=== PATIENT | male | born 1995 | race African-American/Black ===

== ENCOUNTER 2019-06-17 10:49 | Observation (INO) ==
[2019-06-17] MEDS ORDERED: LEVAQUIN 500 MG/D5W 500 MG/100 ML IVPB IV SCH (12:45)
[2019-06-17] MEDS: TYLENOL PO ONE ×2 (13:59→14:27)
[2019-06-17] MEDS: NS 1,000 ML IV SCH ×3 (13:59→19:09)
[2019-06-17] MEDS ORDERED: OFIRMEV 1000 MG/ISOTONIC SOLN 1,000 MG/100 ML BOTTLE IV ONE (14:30)
[2019-06-17] MEDS: ROCEPHIN 2 GM in NS 50 ML IV SCH (17:22)
[2019-06-17] MEDS: ZITHROMAX 500 MG/NS 500 MG/250 ML IVPB IV SCH (18:47)
--- NOTE | 2019-06-17 21:27 | CONSULTATION ---
DATE OF CONSULTATION: 06/17/2019 CONCLUSION: Patient has a febrile illness. He passed out yesterday and had a seizure. He has upper respiratory congestion and he is coughing a lot. He also complains of a sore throat. Of the tests we have gotten so far, the chest x-ray shows no pneumonia. CT scan of the head shows no sinusitis. I think he still could have an infection in one of those parts of his body that just yet has not shown up. RECOMMENDATIONS: I have started the patient on Rocephin. I have discontinued Levaquin because the patient is said to have had a seizure yesterday and Levaquin can cause seizures. Instead, I have started the patient on azithromycin. The azithromycin will be given IV as is the Rocephin. The patient's studies thus far show a CBC with a white count of 4230, hemoglobin 16, and platelet count 199,000. Creatinine is 1. GFR is greater than 60. Liver function studies are normal. Urinalysis was negative for white cells or bacteria. Swab for influenza was negative. Blood cultures are pending. CT scan of the head and sinuses showed no abnormalities. The chest x-ray was clear. PAST MEDICAL HISTORY/REVIEW OF SYSTEMS: Eyes and ears: He hears and sees well. Neck: He does not have any stiffness. Respiratory: See present illness. Cardiac: No palpitations. He does have chest pain, but it is pleuritic in nature. Neurologic: The patient is said to have had a seizure yesterday. Genitourinary: No dysuria or flank pain. PREVIOUS HOSPITALIZATIONS AND OPERATIONS: He has had a cholecystectomy. MEDICAL DISEASES: Negative for sickle cell disease. Negative for diabetes. Negative for seizures, except since yesterday when he was said to have had a seizure. INFECTIOUS DISEASE HISTORY: Negative for pneumonia and UTI. FAMILY HISTORY: Positive for diabetes mellitus, hypertension, myocardial infarction, stroke, and cancer. SOCIAL HISTORY: [place] the city with his parents. He has a girlfriend. He does not have any pets. He drinks alcoholic beverages, but he does not smoke cigarettes or abuse drugs. He is going to school at [employer]. He also works at [employer]. ALLERGIES: He is allergic to Zofran. PHYSICAL EXAMINATION: Vital Signs: Temperature is 98.6 degrees, pulse 88, respirations 16, blood pressure 127/72. There is not a weight in the chart. General: This is a somewhat ill-appearing, young male. He is in no acute distress. Head/eyes/ears/nose/throat: He can hear my spoken words and see near objects. His sinuses are not tender. I did not see any erythema in his throat or white patches on his tongue. Neck: No meningismus. Lungs: I heard a few crackles in the right base. The left lung was clear. Abdomen: Soft and nontender. Neurologic: Patient is alert. He can move his extremities. There is no tremor. His sensation is intact to touch. His memory as regarding his medical history is intact. Integument: No rash noted. Thank you for the consult. cc: MD Talon Millard MD
[2019-06-17] MEDS ORDERED: ATIVAN PO ONE (21:49)
[2019-06-17] MEDS: TYLENOL LIQUID PO PRN (23:54)
--- NOTE | 2019-06-17 23:55 | HISTORY AND PHYSICAL ---
CHIEF COMPLAINT: Fever 103 degrees, difficulty in swallowing. HISTORY OF PRESENT ILLNESS: He is a 23-year-old male who was brought to my office as a followup from the [facility]. The patient was seen yesterday with near- syncope. While he was pulled over, almost passed out. Complains of body pains and ache, coughing. The patient had extensive workup done in [place] [facility]. He had a CT head that is negative. Chest x-ray is negative. Influenza was negative. CBC: Leukopenia. CMP was normal. Sent home on amoxicillin. In my office the patient had fever, chills, not able to talk, and while I am examining he had a left tympanic membrane that is red. Wax was noted on the right eardrum. Oropharynx diffusely red. No exudates noted. While I am putting the tongue blade he had a vasovagal attack, slightly dizzy and near-syncope. There was no seizure activity. No loss of consciousness. He was admitted to the hospital, and the family was really concerned about this high fever. He denies any neck pain. No meningeal signs noted. After triaging in the ER, he had a fever of 103 degrees. IV Tylenol was given. Blood cultures were obtained. ID consult was obtained. As a result, a hospital admission was warranted. PAST MEDICAL HISTORY: Allergic rhinitis, asthmatic bronchitis, IBS with constipation. PAST SURGICAL HISTORY: None. MEDICATIONS: Amoxicillin. ALLERGIES: Zofran. SOCIAL HISTORY: Single. Working for [employer]. Lives in [place]. No smoking, no drugs, no alcohol abuse. FAMILY HISTORY: Father is in good health. Mother is in good health. REVIEW OF SYSTEMS: HEENT: He has a headache, sore throat, fever, body pains and confusion. No neck pain, no rigidity. Cardiopulmonary: No chest pain, shortness of breath, PND or orthopnea. GI: No nausea, vomiting or abdominal pain. No skin rashes. No joint pain. No tick bites. Neurologic: No focal symptoms or weakness. PHYSICAL EXAMINATION: VITAL SIGNS: He has a temperature in my office, 103 degrees, and tachycardic. GENERAL: Slightly confused. HEENT: Left tympanic membrane is inflamed, right not able to see with basically wax noted. Diffuse oropharynx redness. No cyst. Slightly congested. No exudate. NECK: Supple. No lymphadenopathy. CHEST: Bilateral air entry. No rales, no wheezing. HEART: Sounds are regular. No murmur. ABDOMEN: Belly is soft, obese, nontender. Good bowel sounds. No peripheral edema or cyanosis. NEUROLOGIC: No obvious neurological deficits. INVESTIGATIONS: Yesterday, as attached. ASSESSMENT: 1. A 23-year-old male came in with a fever, suspicious viral fever. 2. Left ear otitis media. PLAN: 1. Follow up on blood cultures, sputum cultures. Repeat CBC, CMP in the morning. We will start IV fluids. 2. IV ceftriaxone, Zithromax. Repeat the labs in the morning. Continue symptomatic treatment. I appreciate Dr. Hackett' consult. We will follow up. cc: Talon Mejia MD
[2019-06-18] MEDS: NS 1,000 ML IV SCH ×2 (03:36→18:03)
[2019-06-18 05:50] LABS: BASO# 0.02 X1000 (0.0-0.2); BASO% 0.6 % (0.0-0.8); EOS# 0.04 X1000 (0.0-0.7); EOS% 1.3 % (0.0-10.0); HEMATOCRIT 48.6 % (42.0-52.0); IMM GRAN# 0.02 X1000 (0.0-0.04); IMM GRAN% 0.6 % (0.0-0.5); LYMPH# 0.86 X1000 (1.2-3.4); LYMPH% 27.9 % (20.5-51.1); MCH 26.3 PG (27-31); MCHC 32.9 g/dL (33-37); MCV 79.8 FL (81-99); MONO# 0.72 X1000 (0.11-0.59); MONO% 23.4 % (1.7-9.3); MPV 10.2 FL (7.4-10.4); NEUT# 1.42 X1000 (1.4-6.5); NEUT% 46.2 % (42.2-75.2); PLT 168 X1000 (130-400); RBC 6.09 XMIL (4.7-6.1); RDW 12.3 % (11.5-14.5); WBC 3.08 X1000 (4.8-10.8)
[2019-06-18 06:20] LABS: AGAP 10; ALB/GLOB RATIO 1.2; ALBUMIN 3.7 g/dL (3.5-5.0); ALKALINE PHOSPHATASE 52 U/L (32-122); BUN 9 mg/dL (8-22); CALCIUM 9.3 mg/dL (8.8-10.2); CHLORIDE 101 mmol/L (98-107); COSMO 273; CREATININE 1.3 mg/dL (0.7-1.2); ESTIMATED GFR > 60; GLUCOSE 103 mg/dL (70-104); GOT 22 U/L (10-34); GPT 39 U/L (10-44); SODIUM 137 mmol/L (136-145); TCO2 26 mmol/L (25-35); TOTAL BILIRUBIN 0.65 mg/dL (0.20-1.00); TOTAL PROTEIN 6.7 g/dL (6.3-8.3)
[2019-06-18] MEDS: TESSALON PO PRN ×3 (06:47→21:52)
[2019-06-18] MEDS: TYLENOL LIQUID PO PRN ×3 (06:47→21:57)
[2019-06-18 06:53] LABS: LYMPHS 20 % (21-51); MONO 30 % (1-9); SEGS 48 % (42-75)
--- NOTE | 2019-06-18 07:44 | Diag Imaging Result Doc PS360 ---
CHEST-2 VIEWS - 06/18/2019 INDICATION: hypoxia COMPARISON: 06/16/2019 FINDINGS: The lungs are normally expanded and clear. Heart size and mediastinal contours are normal. No pneumothorax or pleural effusion. IMPRESSION: Negative exam. Electronically signed by Rajeev Solano 06/18/2019 7:42 AM
--- NOTE | 2019-06-18 09:58 | PROGRESS NOTE ---
DATE: 06/18/2019 SUBJECTIVE: The patient is still running a 102 fever, tachycardic, and coryza, URI symptoms. Ears are hurting. Denies of neck pain. REVIEW OF SYSTEMS: Fever, URI symptoms. PHYSICAL EXAMINATION: Temperature is now 99.5, tachycardic. Vitals are stable. No neck rigidity noted. Diffuse oral erythema noted. Chest is clear. Heart sounds are regular. LABORATORY DATA: CBC: White cell count 3.0, hematocrit 48, platelets 168,000. SMA-7: Creatinine 1.3. ASSESSMENT AND PLAN: 1. Impending dehydration. Intravenous fluids. Follow up on creatinine. 2. Fever, coryza, upper respiratory infection symptoms, left ear otitis media. Continue intravenous Rocephin and Zithromax. 3. Ear wax on the right side. 4. No meningeal signs. Most likely viral fever complicated by otitis media. 5. Near syncope due to vasovagal. All the workup was basically reassuring. Discussed with the family at bedside. We will continue to monitor. We can use Tylenol as needed for fever. LEVEL OF DOCUMENTATION: 25 minutes. cc: Talon Mejia MD
--- NOTE | 2019-06-18 11:29 | INFECTIOUS DISEASE PROGRESS NO ---
DATE: 06/18/2019 PRESENT ILLNESS: The patient has a febrile illness. He is coughing quite a bit and I suspect he has some type of bronchitis or a very early pneumonia that does not show up on the chest x-ray. Dr. Mejia discovered that the patient has a left otitis media. MEDICATIONS: The patient is receiving Rocephin and azithromycin. The patient is seeing receiving Rocephin and azithromycin. PHYSICAL EXAMINATION: Vital Signs: Earlier the patient's temperature was 102 degrees and the last temperature taken in the computer was 99.5. Head/eyes/ears/nose/throat: He can hear my spoken words and see near objects. His sinuses are not tender. He does seem to be congested in his sinuses. Neck: No meningismus. Lungs: Clear to auscultation. Cardiovascular: Heart rate is regular. Abdomen: Soft and nontender. Neurologic: The patient is awake. He can move his extremities. There is no tremor. LAB AND X-RAY: The CBC shows a white count of 3080, with neutrophils 46% and lymphocytes 28% and mononuclear cells 23.4%. The patient's hemoglobin was 16 and the platelet count was 168,000. Sputum culture on Gram stain showed gram-positive cocci and gram-positive rods. However, it was not a good sputum specimen because there was a lot of mucus and very little white cells. There is no new radiographic study for this morning. ASSESSMENT AND PLAN: I think the patient has some type of upper respiratory tract infection and/or possibly a bronchitis. Dr. Mejia discovered that the patient had an otitis media. My plan is to continue Rocephin and azithromycin. The patient requested a cough medicine and I have put in an order for the Tessalon Perles to be taken on a p.r.n. basis. COMORBIDITIES: I could not find any comorbidities in this patient. cc: MD Talon Millard MD
[2019-06-18] MEDS: ROCEPHIN 2 GM in NS 50 ML IV SCH (14:33)
[2019-06-18] MEDS: ZITHROMAX 500 MG/NS 500 MG/250 ML IVPB IV SCH (15:31)
[2019-06-19] MEDS: NS 1,000 ML IV SCH (04:42)
[2019-06-19 07:43] VITALS: BP 136/67
--- NOTE | 2019-06-19 15:08 | INFECTIOUS DISEASE PROGRESS NO ---
DATE: 06/19/2019 PRESENT ILLNESS: The patient has a febrile illness. His temperature did go up to 101, but it is back down now. I think he may have a bronchitis and he may have an infection with 1 of the atypical organisms such as mycoplasma. I did look in the patient's ears. In the right ear, there is just wax in the left ear. In the left ear the tympanic membrane has a normal light reflex. It is very shiny. There is a small amount of erythema on the tympanic membrane at this time. MEDICATIONS: I have continued Rocephin and azithromycin. PHYSICAL EXAMINATION: Vital Signs: Temperature is 98 degrees, pulse 68, respirations 19, blood pressure 143/72. General: This is a somewhat ill-appearing young male. He is in no acute distress. Head/eyes/ears/nose/throat: He can hear my spoken words and see near objects. Ears are as I described above when I used the otoscope. Neck: No stiffness. Lungs: Clear to auscultation. Cardiovascular: Regular heart rate. Abdomen: Soft and nontender. Neurologic: The patient is alert. He can move his extremities. There is no tremor. LAB AND X-RAY: CBC shows a white count of 3080. Hemoglobin 16, platelet count 168,000. Creatinine is 1.3. GFR is greater than 60. Liver function studies are normal. Blood cultures are negative. Sputum grew normal joe. Chest x-ray is clear. ASSESSMENT AND PLAN: I think the patient has some type of upper respiratory tract infection or a bronchitis. The patient feels he is getting better and I plan on continuing Rocephin and azithromycin. The patient said the cough medicine I prescribed namely Tessalon Perles is helping him. COMORBIDITIES: None that I can find. cc: MD Talon Millard MD
--- NOTE | 2019-06-21 15:39 | DISCHARGE SUMMARY ---
ADMISSION DATE: 06/17/2019 DISCHARGE DATE: 06/21/2019 DISCHARGING DIAGNOSIS: Altered mental status due to fever. SECONDARY DIAGNOSIS: 1. Near syncope due to vasovagal. 2. History of asthmatic bronchitis. 3. Metabolic syndrome. 4. Acute upper respiratory infection with left otitis media. 5. Impacted cerumen on the right side. CONSULTS: Dr. Sher Hackett. BRIEF HISTORY: Please see the H P that was done on 06/17/2019. In brief, he is a 23-year-old male, not able to swallow, fever, altered mental status, was seen a day before prior to my office visit. In my office upon examination, he had a vasovagal effect after putting the tongue blade to examine the oropharynx. The patient does have left ear otitis media and his blood pressure dropped, tachycardic, fever 103. There were no signs of meningitis. The patient was admitted for observation. HOSPITAL COURSE: He had a temperature 103 degrees. Panculture workup was done. White cell count was normal. Flu test was negative. The patient was seen by Dr. Sher Hackett. Chest x-ray was stable. The patient was given Rocephin followed by Zithromax. He was also given IV Tylenol for fever. There were no signs of meningeal signs. Repeat blood cultures were negative. Sputum cultures normal joe. LABS: CBC: White cell count 3.0, hematocrit 48, platelets 168,000. Sodium 137, potassium 4.0, chloride 101, BUN 9, creatinine 1.3, glucose 103. LFTs were normal. DISCHARGE INSTRUCTIONS ARE FOLLOWS: A Z-Cheikh 500 daily for 7 days, Poly Hist DM as needed for cough, Norel AD t.i.d. Follow up in my office in 10 days. Initiate vaccination protocol prior to the discharge. cc: MD Sher Narayanan MD
== END 2019-06-19 09:31 | disposition home or self-care (01) ==
LOC: DIRADM 10:49 → INTOOBSV 10:49 → EDIPHOLD 11:34 → 1N 20:40
PROVIDERS: ADMIT Internal Medicine; ATTEND Internal Medicine

== ENCOUNTER 2019-07-10 14:19 | Inpatient (IN) ==
[2019-07-10] MEDS ORDERED: TYLENOL PO ONE ×2 (15:23→21:42)
--- NOTE | 2019-07-10 15:35 | Diag Imaging Result Doc PS360 ---
EXAM: CHEST-1 VIEW 07/10/2019 HISTORY: POSSIBLE SEPSIS TECHNIQUE: AP portable upright at 1528 COMMENT: The inspiration is suboptimal. Compared to 06/18/2019 there has been no significant change otherwise. IMPRESSION: No acute disease. Electronically signed by Mike Bonilla 07/10/2019 3:33 PM
[2019-07-10 16:19] LABS: BASO# 0.01 X1000 (0.0-0.2); BASO% 0.3 % (0.0-0.8); EOS# 0.03 X1000 (0.0-0.7); HEMATOCRIT 50.3 % (42.0-52.0); HEMOGLOBIN 16.5 g/dL (14.0-18.0); IMM GRAN# 0.03 X1000 (0.0-0.04); LYMPH# 0.52 X1000 (1.2-3.4); LYMPH% 17.4 % (20.5-51.1); MCHC 32.8 g/dL (33-37); MCV 79.3 FL (81-99); MONO# 0.47 X1000 (0.11-0.59); MONO% 15.8 % (1.7-9.3); MPV 10.4 FL (7.4-10.4); NEUT# 1.92 X1000 (1.4-6.5); NEUT% 64.5 % (42.2-75.2); PLT 192 X1000 (130-400); RBC 6.34 XMIL (4.7-6.1); RDW 12.4 % (11.5-14.5); WBC 2.98 X1000 (4.8-10.8)
--- NOTE | 2019-07-10 16:21 | Diag Imaging Result Doc PS360 ---
EXAM: CT HEAD W/O CONTRAST 07/10/2019 HISTORY: stroke like symptoms TECHNIQUE: This exam was performed using automated exposure control, adjustment of mA or kV according to patient size, and/or use of iterative reconstruction technique. COMMENT: There is no evidence of mass effect, bleed, or abnormal extra-axial fluid collection. Compared to the previous examination of 06/16/2019 there has been no significant change. Some of the posterior ethmoid air cells are opacified. The calvarium is intact. Compared to the previous examination the ethmoid sinusitis is actually somewhat improved. IMPRESSION: No evidence of acute intracranial disease. Improved ethmoid sinusitis. Electronically signed by Mike Bonilla 07/10/2019 4:19 PM
[2019-07-10 16:23] LABS: INR 1.08; PROTIME 14.1 Seconds (11.0-16.0)
[2019-07-10 16:50] LABS: AGAP 12; ALB/GLOB RATIO 1.6; ALBUMIN 4.5 g/dL (3.5-5.0); ALKALINE PHOSPHATASE 61 U/L (32-122); BUN 8 mg/dL (8-22); CALCIUM 9.5 mg/dL (8.8-10.2); CHLORIDE 98 mmol/L (98-107); CK PROFILE 574 U/L (24-204); COSMO 277; CREATININE 1.3 mg/dL (0.7-1.2); ESTIMATED GFR > 60; GLUCOSE 123 mg/dL (70-104); GOT 47 U/L (10-34); GPT 102 U/L (10-44); POTASSIUM 4.2 mmol/L (3.5-5.1); SODIUM 139 mmol/L (136-145); TCO2 29 mmol/L (25-35); TOTAL PROTEIN 7.4 g/dL (6.3-8.3)
[2019-07-10 17:06] LABS: CK INDEX 0.2 (0.0-2.5); CK-MB 1.03 ng/mL (0.0-5.0)
[2019-07-10] MEDS ORDERED: NS 1,000 ML IV ONE (17:37)
--- NOTE | 2019-07-10 17:43 | PROVIDER DOCUMENTATION ---
This chart was entered by Barbra Griffin Scribe, acting as scribe for Dioni Azevedo MD. HPI-Syncope/Dizziness - General Chief Complaint: SEPSIS ALERT - D Stated Complaint: SEIZURE Time Seen by Provider: 07/10/19 14:49 Source: patient Allergies/Adverse Reactions: Patient Allergies Allergy/AdvReac Type Severity Reaction Status Date / Time ondansetron [From Zofran] AdvReac ITCHING Verified 06/16/19 10:46 Home Medications: Home Medication List Medication Instructions Recorded Confirmed Last Taken Type Azithromycin [Zithromax] 500 mg PO DAILY #7 tab 06/19/19 Unknown Rx Phenylephrine/Acetaminophn/Cpm 1 ea PO TID #30 tab 06/19/19 Unknown Rx [Norel Ad Tablet] Thonzylamine/Phenylephrine/Dm 5 ml PO TID #240 ml 06/19/19 Unknown Rx [Poly-Hist Dm Liquid] - History of Present Illness-Syncope/Dizzy Nature of Presenting Problem: 23 yom presents to the ed with c/o syncope while at the pharmacy. pt has hx of syncope and sts this episode felt like his BGL may have dropped. pt has had a cough and has been on 2 rounds of abx without relief of sx. pt on exam is back to baseline and is in no distress Prior Episodes: reports: single episode today, remote history Onset/Duration: reports: just prior to arrival Timing: reports: improving, gone now Position/Activity at time of episode: reports: sitting Symptoms prior to episode: reports: headache, lightheaded Context: reports: lost consciousness Loss of Consciousness: brief (seconds) Location of injury. (If syncope resulted in an injury.): reports: none Current Symptoms: reports: none/feels normal Similar symptoms previously: reports: previous diagnosis Recently Seen Here or By Another Healthcare Provider: Yes (06/19/19 pt has had x2 negative head ct) Review of Systems - Adult - REVIEW OF SYSTEMS - ADULT Constitutional: reports: chills, fever Eyes: reports: no symptoms reported Ears, Nose, Mouth & Throat: reports: no symptoms reported Cardiovascular: denies: chest pain, palpitations Respiratory: reports: see HPI, cough. denies: shortness of breath, wheezing Gastrointestinal: denies: abdominal pain, diarrhea, nausea, vomiting Genitourinary: reports: no symptoms reported Musculoskeletal: reports: see HPI, muscle aches. denies: back pain, neck pain Integumentary: reports: no symptoms reported Neurological: reports: see HPI, headache/migraines, syncope. denies: dizziness/vertigo, slurred speech, tremors Psychiatric: reports: no symptoms reported Endocrine: reports: no symptoms reported Hematologic/Lymphatic: reports: no symptoms reported Allergic/Immunologic: reports: no symptoms reported All Other Systems: Reviewed and Negative Past History - Adult - PAST MEDICAL HISTORY-ADULT Review of Records: reports: Old Records Reviewed, Nursing Assessment Review, Medications Reviewed, Social history reviewed & non-contributory. Major Childhood Illnesses: reports: denies history Cardiovascular: reports: denies history Respiratory: reports: denies history Gastrointestinal: reports: denies history Genitourinary: reports: denies history Musculoskeletal: reports: denies history Neurological: reports: denies history Psychiatric: reports: denies history Endocrine/Immune: reports: Diabetes Diabetes Type: Type 2 Other Conditions: reports: denies history - PRIOR SURGERIES/PROCEDURES Surgical/Procedure History: reports: reviewed, not pertinent - IMMUNIZATION STATUS Childhood Immunizations: See Nurse Assessment Flu Vaccine: See Nurse Assessment - FAMILY HISTORY Family History: seizures - SOCIAL HISTORY Smoking: denies Substance Use: denies Living Situation: family Physical Exam-General - PHYSICAL EXAM-ADULT Initial Vital Signs Reviewed: Yes (temp 102 9) - CONSTITUTIONAL General Appearance: appears well, alert, mild distress, other (bodyaches and cough noted on exam) - EYES Eyes: PERRL/EOMI, pink conjunctivae - HEAD, EARS, NOSE, MOUTH & THROAT HENMT: moist mucous membranes, TM obscurred by cerumen (rT) - NECK Neck: non-tender, full range of motion, supple, normal inspection - RESPIRATORY Respiratory: chest non-tender, lungs clear, normal breath sounds - CARDIOVASCULAR Cardiovascular: normal peripheral pulses, regular rate, rhythm - CHEST (BREASTS) Chest/Breast: deferred - GASTROINTESTINAL (ABDOMEN) Abdominal Exam: normal bowel sounds, non tender, soft - GENITOURINARY Male Genitalia: deferred Rectal Exam: deferred Hemoccult Exam: deferred - LYMPHATIC Lymphatic: no adenopathy - MUSCULOSKELETAL Back Exam: no CVA tenderness, no vertebral tenderness Extremity: normal range of motion, non-tender, normal inspection - SKIN Integumentary: normal color, normal turgor, warm/dry - NEUROLOGIC Neurologic: grossly normal - PSYCHIATRIC Psych/Mental Status: normal mood/affect, normal thought content, normal thought process, oriented x 3 Progress - PLAN OF CARE/RESULTS Progress/Plan/Lab Results: Vital Signs - 8 hr 07/10/19 14:45 Temperature 102.9 F H Pulse Rate 93 H Respiratory Rate 14 Blood Pressure 145/74 O2 Sat by Pulse Oximetry 96 07/10/19 15:48 Influenza Screen - Final Nasopharyngeal Laboratory Results - last 24 hr 07/10/19 07/10/19 07/10/19 15:45 15:45 15:45 WBC 2.98 L RBC 6.34 H Hgb 16.5 Hct 50.3 MCV 79.3 L MCH 26.0 L MCHC 32.8 L RDW Std Deviation 12.4 Plt Count 192 MPV 10.4 Immature Gran % (Auto) 1.0 H Neut % (Auto) 64.5 Lymph % (Auto) 17.4 L [place] % (Auto) 15.8 H Eos % (Auto) 1.0 Baso % (Auto) 0.3 Immature Gran # (Auto) 0.03 Neut # (Auto) 1.92 Lymph # (Auto) 0.52 L [place] # (Auto) 0.47 Eos # (Auto) 0.03 Baso # (Auto) 0.01 PT 14.1 INR 1.08 PTT (Actin FS) 31.0 Sodium 139 Potassium 4.2 Chloride 98 Carbon Dioxide 29 Anion Gap 12 BUN 8 Creatinine 1.3 H Estimated GFR/1.73 m2 > 60 BUN/Creatinine Ratio 6 Glucose 123 H Calculated Osmolality 277 Calcium 9.5 Total Bilirubin 0.60 AST 47 H ALT 102 H Alkaline Phosphatase 61 Ammonia Creatine Kinase 574 H Creatine Kinase Index 0.2 CK-MB (CK-2) 1.03 Troponin T High Sens Total Protein 7.4 Albumin 4.5 Globulin 2.9 Albumin/Globulin Ratio 1.6 Plasma Lactate Urine Source Urine Color Urine Turbidity Urine pH Ur Specific [place] Urine Protein Ur Glucose (Stick) Ur Ketones (Stick) Urine Blood Urine Nitrite Urine Bilirubin Urobilinogen Dipstick Urine Leukocytes Urine WBC (Auto) Urine RBC (Auto) U Epithel Cells (Auto) Urine Bacteria (Auto) Urine Opiates Screen Ur Oxycodone Screen Ur Methadone, Qual Ur Barbiturates Screen Ur Phencyclidine Scrn Ur Amphetamines Screen U Benzodiazepines Scrn Urine Cocaine Screen U Cannabinoids Screen 07/10/19 07/10/19 07/10/19 15:45 15:45 17:48 WBC RBC Hgb Hct MCV MCH MCHC RDW Std Deviation Plt Count MPV Immature Gran % (Auto) Neut % (Auto) Lymph % (Auto) [place] % (Auto) Eos % (Auto) Baso % (Auto) Immature Gran # (Auto) Neut # (Auto) Lymph # (Auto) [place] # (Auto) Eos # (Auto) Baso # (Auto) PT INR PTT (Actin FS) Sodium Potassium Chloride Carbon Dioxide Anion Gap BUN Creatinine Estimated GFR/1.73 m2 BUN/Creatinine Ratio Glucose Calculated Osmolality Calcium Total Bilirubin AST ALT Alkaline Phosphatase Ammonia 35 Creatine Kinase Creatine Kinase Index CK-MB (CK-2) Troponin T High Sens 9 Total Protein Albumin Globulin Albumin/Globulin Ratio Plasma Lactate 1.2 Urine Source Urine Color Urine Turbidity Urine pH Ur Specific [place] Urine Protein Ur Glucose (Stick) Ur Ketones (Stick) Urine Blood Urine Nitrite Urine Bilirubin Urobilinogen Dipstick Urine Leukocytes Urine WBC (Auto) Urine RBC (Auto) U Epithel Cells (Auto) Urine Bacteria (Auto) Urine Opiates Screen Ur Oxycodone Screen Ur Methadone, Qual Ur Barbiturates Screen Ur Phencyclidine Scrn Ur Amphetamines Screen U Benzodiazepines Scrn Urine Cocaine Screen U Cannabinoids Screen 07/10/19 07/10/19 07/10/19 17:48 18:45 18:45 WBC RBC Hgb Hct MCV MCH MCHC RDW Std Deviation Plt Count MPV Immature Gran % (Auto) Neut % (Auto) Lymph % (Auto) [place] % (Auto) Eos % (Auto) Baso % (Auto) Immature Gran # (Auto) Neut # (Auto) Lymph # (Auto) [place] # (Auto) Eos # (Auto) Baso # (Auto) PT INR PTT (Actin FS) Sodium Potassium Chloride Carbon Dioxide Anion Gap BUN Creatinine Estimated GFR/1.73 m2 BUN/Creatinine Ratio Glucose Calculated Osmolality Calcium Total Bilirubin AST ALT Alkaline Phosphatase Ammonia Creatine Kinase Creatine Kinase Index CK-MB (CK-2) Troponin T High Sens Total Protein Albumin Globulin Albumin/Globulin Ratio Plasma Lactate 2.1 Urine Source CLEAN CATCH Urine Color YELLOW Urine Turbidity CLEAR Urine pH 7.5 Ur Specific [place] 1.023 Urine Protein TRACE A Ur Glucose (Stick) NEGATIVE Ur Ketones (Stick) NEGATIVE Urine Blood NEGATIVE Urine Nitrite NEGATIVE Urine Bilirubin NEGATIVE Urobilinogen Dipstick 2 A Urine Leukocytes NEGATIVE Urine WBC (Auto) <10 Urine RBC (Auto) <10 U Epithel Cells (Auto) <10 Urine Bacteria (Auto) NEGATIVE Urine Opiates Screen NONE DETECTED Ur Oxycodone Screen NONE DETECTED Ur Methadone, Qual NONE DETECTED Ur Barbiturates Screen NONE DETECTED Ur Phencyclidine Scrn NONE DETECTED Ur Amphetamines Screen NONE DETECTED U Benzodiazepines Scrn NONE DETECTED Urine Cocaine Screen NONE DETECTED U Cannabinoids Screen NONE DETECTED Orders Category Date Time Status Cardiac Monitoring DIRECTED Care 07/10/19 15:18 Active Cardiac Monitoring DIRECTED Care 07/10/19 15:19 Active Finger Stick Blood Sugar (ED) DIRECTED Care 07/10/19 15:18 Active IV Insertion ORDERED Care 07/10/19 15:19 Completed Notify MD of + Sepsis Screen NOW Care 07/10/19 15:19 Active Notify Physician As Ordered Care 07/10/19 15:19 Active Nursing- MD Consult Request ROUTINE Care 07/10/19 18:26 Active Saline Loc NOW Care 07/10/19 15:18 Active Physician/Provider Consults Routine Cons 07/10/19 18:26 Ordered CHEST-1 VIEW [RAD] Stat Exams 07/10/19 15:[address] HEAD W/O CONTRAST [CT] Stat Exams 07/10/19 15:18 Completed AMMONIA [CHEM] Stat Lab 07/10/19 17:48 Completed BLOOD CULTURE [BLDCUL] Stat Lab 07/10/19 17:48 Results CBC WITH ELECTRONIC DIFF [HEME] Stat Lab 07/10/19 15:45 Completed CK PROFILE [SP CHEM] Stat Lab 07/10/19 15:45 Completed COMPREHENSIVE METABOLIC PANEL [CHEM] Stat Lab 07/10/19 15:45 Completed INFLUENZA SCREEN A/B Stat Lab 07/10/19 15:48 Completed LACTATE, PLASMA [CHEM] Q3H Lab 07/10/19 15:45 Completed LACTATE, PLASMA [CHEM] Q3H Lab 07/10/19 17:48 Completed LACTATE, PLASMA [CHEM] Q3H Lab 07/10/19 21:30 Uncollected PROTIME WITH INR [COAG] Stat Lab 07/10/19 15:45 Completed PTT [COAG] Stat Lab 07/10/19 15:45 Completed TROPONIN T HIGH SENSITIVITY Stat Lab 07/10/19 15:45 Completed URINALYSIS W/POSS RFLX CULT [URINALYSIS] Stat Lab 07/10/19 18:45 Completed URINE DRUG SCREEN Stat Lab 07/10/19 18:45 Completed 0.9% Sodium Chloride Inj [Ns] 1,000 ml Med 07/10/19 17:37 Discontinued IV 999 mls/hr Acetaminophen [Tylenol] Med 07/10/19 15:23 Discontinued 650 mg PO NOW ONE Enoxaparin [Lovenox] Med 07/10/19 18:45 Active 40 mg SUBQ Q24H Oxygen Device Stat Oth 07/10/19 15:19 Active EKG [EKG] Stat Ther 07/10/19 15:18 Ordered Transfer/Admit Order [TRANSFER] Routine Transfer 07/10/19 18:31 Ordered Result Diagrams: 07/10/19 15:45 07/10/19 15:45 - REASSESSMENT Reassessment #1 Time Reassessed: 17:00 Status: other (No new symptoms since ED stay, has not given urine) - XRAY 1 XRAY: Bilateral XRAY Study: Chest Impression: See EMR Report ([facility] - [address] [facility], [address] [address] [facility] - [address] [place] [address] Department of Imaging Patient: MARIE MOTA Date: 07/10/19MR#: [id number] : 1995ADM Status: PRE ERAcct#: [id number] Age/Sex: 23/MRoom/Bed: Loc: ED Ordering Physician: Colby Dudley MD Family Physician: Henok Mejia MD Reason for Procedure: POSSIBLE SEPSIS ____ Signed EXAM: CHEST-1 VIEW 07/10/2019 HISTORY: POSSIBLE SEPSIS TECHNIQUE: AP portable upright at 1528 COMMENT: The inspiration is suboptimal. Compared to 06/18/2019 there has been no significant change otherwise. IMPRESSION: No acute disease. Electronically signed by Mike Bonilla 07/10/2019 3:33 PM 07/10/19 1533 Interpreting Physician: Mike Bonilla MD Dictated Date/Time: 07/10/19 1532 cc: Colby Dudley MD; Henok Mejia MD) - CT/MRI 1 CT Study: Head Impression: See EMR Report (EXAM: CT HEAD W/O CONTRAST 07/10/2019 HISTORY: stroke like symptoms TECHNIQUE: This exam was performed using automated exposure control, adjustment of mA or kV according to patient size, and/or use of iterative reconstruction technique. COMMENT: There is no evidence of mass effect, bleed, or abnormal extra-axial fluid collection. Compared to the previous examination of 06/16/2019 there has been no significant change. Some of the posterior ethmoid air cells are opacified. The calvarium is intact. Compared to the previous examination the ethmoid sinusitis is actually somewhat improved. IMPRESSION: No evidence of acute intracranial disease. Improved ethmoid sinusitis. Electronically signed by Mike Bonilla 07/10/2019 4:19 PM 07/10/19 1619 Interpreting Physician: Mike Bonilla MD Dictated Date/Time: 07/10/19 1617 cc: Dioni Azevedo MD; Henok Mejia MD) - CONSULTS/PCP/HOSPITALIST Notification #1 *Consult/PCP/Hospitalist*: Dr Mejia Time Discussed: 17:32 Consult Disposition: Admit (accepts admission) Departure - Departure Date of Disposition Decision: 07/10/19 Time of Disposition Decision: 17:36 DIAGNOSIS: Transaminitis Syncope Qualifiers: Syncope type: unspecified Qualified Code(s): R55 - Syncope and collapse Disposition: ADMITTED INPATIENT 09 Certified Medical Emergency: Emergent Condition: Stable Referrals and Follow-Ups: Henok Mejia MD [Primary Care Provider] - - Critical Care Note This patient required my direct & personal management of CC.: No Attestation - Physician/ DENNYS Attestation Patient care was provided by Advanced Practice Provider:: No The physician spent face to face time with patient:: Yes Advanced Practice Provider documentation review:: Supervising physician onsite and consulted in the evaluation and care of this patient. The physician did have a face to face encounter with the patient. This chart was documented by the indicated scribe, (Barbra Griffin Scribe) and accurately reflects the services I performed and decisions made by me, Dioni Azevedo MD, as attested by the provider's signature.
[2019-07-10] MEDS ORDERED: LOVENOX SUBQ SCH (18:45)
[2019-07-10 19:07] LABS: URINE SOURCE CLEAN CATCH
[2019-07-10 19:10] LABS: BILIRUBIN URINE NEGATIVE (NEGATIVE); BLOOD URINE NEGATIVE (NEGATIVE); COLOR YELLOW; GLUCOSE URINE NEGATIVE (NEGATIVE); KETONE URINE NEGATIVE (NEGATIVE); LEUKOCYTES URINE NEGATIVE (NEGATIVE); NITRITE URINE NEGATIVE (NEGATIVE); PH URINE 7.5; PROTEIN URINE TRACE mg/dL (NEGATIVE); SP GRAVITY URINE 1.023; TURBIDITY URINE CLEAR (CLEAR); UROBILINOGEN URINE 2 mg/dL (NORMAL)
[2019-07-10 19:12] LABS: UR EPITHELIAL CELLS <10 /HPF (<10); URINE BACTERIA NEGATIVE /HPF; URINE RBC <10 /HPF (<10); URINE WBC <10 /HPF (<10)
[2019-07-10 19:21] LABS: UR AMPHETAMINES QUAL NONE DETECTED (NONE DETECT); UR BARBITUATES QUAL NONE DETECTED (NONE DETECT); UR BENZODIAZEPIN QUAL NONE DETECTED (NONE DETECT); UR CANNABINOIDS QUAL NONE DETECTED (NONE DETECT); UR COCAINE QUAL NONE DETECTED (NONE DETECT); UR METHADONE QUAL NONE DETECTED (NONE DETECT); UR OPIATES QUAL NONE DETECTED (NONE DETECT); UR OXYCODONE QUAL NONE DETECTED (NONE DETECT); UR PCP QUAL NONE DETECTED (NONE DETECT)
[2019-07-10] MEDS: LOVENOX SUBQ SCH (22:00)
[2019-07-10] MEDS ORDERED: NEXIUM IV SCH (22:00)
[2019-07-10] MEDS ORDERED: SODIUM CHLORIDE 0.9% INJ SCH (22:00)
[2019-07-10] MEDS: PROTONIX IV SCH (22:15)
[2019-07-10] MEDS: ZOSYN 3.375 GM in NS 50 ML IV SCH (22:16)
[2019-07-10] MEDS: SODIUM CHLORIDE 0.9% INJ SCH (22:16)
[2019-07-10] MEDS: NS 1,000 ML IV SCH (22:18)
--- NOTE | 2019-07-10 22:22 | HISTORY AND PHYSICAL ---
CHIEF COMPLAINT: Possible near syncope, seizure-like illness. HISTORY OF PRESENT ILLNESS: This 23-year-old, -Burmese male, had a second episode of possible syncope versus seizure associated with blood sugars dropping. He has been doing well, and having these recurrent fevers and syncopal spells. He was admitted here from June 17 to June 21. He was seen by Dr. Hackett, treated for upper respiratory infection. Then, he was doing better and during this time, he had a syncopal spell with low blood sugar and subsequently went to [facility]. Then, he came to my office as a followup with his mother. There is not good documentation. I did a 3-hour glucose tolerance test. After 3 hours, his blood sugar dropped to 67. He is getting borderline diabetes. In explained about the hypoglycemia. A1c was normal. Then today, he was dropping the medicines at [facility], and he started having cough and had passed out, possible seizure-like illness, about 3 minutes, and brought to the emergency room. In the ER, workup was negative. CT showed improvement of ethmoid sinusitis. Flu test was negative. Low white cell count, fever 103, and basically admitted to the hospital for further workup for seizure, syncope, recurrent fever, and leukopenia. PAST MEDICAL HISTORY: Allergic rhinitis, asthmatic bronchitis, glucose intolerance, IBS with constipation. PAST SURGICAL HISTORY: None. MEDICINES: Z-Cheikh, Norel AD. ALLERGIES: Zofran. SOCIAL HISTORY: Single. Working for [employer]. Lives in [place]. No smoking. No drugs. No alcohol abuse. FAMILY HISTORY: Father has good health. Mom has good health. REVIEW OF SYSTEMS: HEENT: Headache, fever, seizure-like illness, sore throat. No neck pain. No goiter. No lymphadenopathy. Cardiopulmonary: No chest pain, shortness of breath, PND, orthopnea. Gastrointestinal: No nausea, vomiting, abdominal pain. Genitourinary: No urgency, frequency, dysuria. No swelling of legs. No joint pain. Neurologic: No focal symptoms or weakness. PHYSICAL EXAMINATION: VITAL SIGNS: Temperature is 102.9 degrees, 93, blood pressure 140/74. Height 5 feet 7 inches, 200 pounds. HEENT: Atraumatic, normocephalic. Pupils equal, reactive to light. TMs are normal. Nose and throat within normal limits. NECK: Supple. No lymphadenopathy. CHEST: Bilateral air entry. CARDIOVASCULAR: Heart sounds are regular. GASTROINTESTINAL: Belly is soft, nontender. Good bowel sounds. EXTREMITIES: No peripheral edema. No cyanosis or clubbing. NEUROLOGIC: Nonfocal. INVESTIGATIONS: Chest x-ray was negative. CT head is negative, except improving ethmoid sinusitis. Blood cultures are pending. Influenza was negative. CBC: White cell count 3, hematocrit 50, platelet count 192,000. PT/INR is normal. Anion gap is normal. Creatinine 1.3. Plasma lactate is normal. CK is 574. Urinalysis is negative. Urine tox screen was negative. ASSESSMENT AND PLAN: 1. A 23-year-old, white male, with recurrent upper respiratory infection symptoms, flu-like symptoms, leukopenia, and possible syncopal spells versus seizure. Plan of care: It looks like a viral fever with secondary infection. We will continue panculture workup, and IV Zosyn and Zithromax. Consults with Dr. Hackett. 2. Glucose intolerance, hyperglycemia. Continue to monitor C-peptide levels. 3. Dehydration. IV fluids. 4. Elevated CK. Stable. Plasma lactate is normal. 5. Questionable syncope versus seizures. Blood test was negative. CT head was negative. We will ask neurologist for evaluation. We will want to keep him here over the weekend. 6. Deep vein thrombosis and gastrointestinal prophylaxis with Lovenox and Protonix, respectively. We will check the labs in the morning. cc: Talon Mejia MD
[2019-07-10] MEDS: ZITHROMAX 500 MG/NS 500 MG/250 ML IVPB IV SCH (23:34)
[2019-07-11] MEDS: ZOSYN 3.375 GM in NS 50 ML IV SCH ×4 (04:45→22:27)
[2019-07-11 08:43] LABS: AGAP 11; BUN 8 mg/dL (8-22); CALCIUM 9.2 mg/dL (8.8-10.2); CHLORIDE 100 mmol/L (98-107); COSMO 274; CREATININE 1.2 mg/dL (0.7-1.2); ESTIMATED GFR > 60; GLUCOSE 102 mg/dL (70-104); POTASSIUM 4.2 mmol/L (3.5-5.1); SODIUM 138 mmol/L (136-145); TCO2 27 mmol/L (25-35)
[2019-07-11 09:12] LABS: BASO# 0.01 X1000 (0.0-0.2); BASO% 0.5 % (0.0-0.8); EOS# 0.03 X1000 (0.0-0.7); EOS% 1.4 % (0.0-10.0); HEMATOCRIT 45.4 % (42.0-52.0); HEMOGLOBIN 15.1 g/dL (14.0-18.0); LYMPH# 0.71 X1000 (1.2-3.4); LYMPH% 32.9 % (20.5-51.1); MCH 26.5 PG (27-31); MCHC 33.3 g/dL (33-37); MCV 79.6 FL (81-99); MONO# 0.53 X1000 (0.11-0.59); MONO% 24.5 % (1.7-9.3); MPV 10.1 FL (7.4-10.4); NEUT# 0.88 X1000 (1.4-6.5); NEUT% 40.7 % (42.2-75.2); PLT 161 X1000 (130-400); RDW 12.2 % (11.5-14.5); WBC 2.16 X1000 (4.8-10.8)
[2019-07-11 12:04] LABS: ANISOCYTOSIS 4+; BASO 1 % (0-1); EOS 2 % (1-10); HOWELL-JOLLY BODIES OCCASIONAL; HYPOCHROM 3+; LYMPHS 34 % (21-51); MICROCYTOSIS 4+; MONO 20 % (1-9); SEGS 43 % (42-75)
[2019-07-11] MEDS: NS 1,000 ML IV SCH (17:14)
--- NOTE | 2019-07-11 21:12 | PROGRESS NOTE ---
DATE: 07/11/2019 SUBJECTIVE: The patient has running fever, 103 degrees. The patient has a FreeStyle Hanna for monitoring blood sugars, and he still has some cough. No headache or photophobia. No neck pain. REVIEW OF SYSTEMS: Still has low-grade fever. OBJECTIVE: Vital signs are stable. HEENT exam: Sniffles. TMs are normal. No meningeal signs. He has a possible sebaceous cyst on the nape of the neck on the back side. Chest is clear. Heart sounds are regular. No obvious deficits. LABORATORY DATA: White cell count 2.1, hematocrit 45, platelets 161,000. SMA 7 is normal. ASSESSMENT AND PLAN: 1. Syncope versus seizure. Family wants second opinion. Neurology consult on Saturday. We will schedule for electroencephalogram and MRI. 2. Dehydration. Intravenous fluids. Better. 3. Vital fever, leukopenia, secondary sinus infection. On intravenous Zosyn and Levaquin. Influenza screen was negative. We will discuss with Dr. Hackett. 4. Glucose intolerance. Continue to monitor blood sugars. We will check the C-peptide and follow up. Level of documentation 25 minutes. cc: Talon Mejia MD
[2019-07-11] MEDS ORDERED: MAALOX PLUS LIQUID PO PRN (22:14)
[2019-07-11] MEDS: ZITHROMAX 500 MG/NS 500 MG/250 ML IVPB IV SCH (22:18)
[2019-07-11] MEDS: SODIUM CHLORIDE 0.9% INJ SCH (22:28)
[2019-07-11] MEDS: LOVENOX SUBQ SCH (22:28)
[2019-07-11] MEDS: TYLENOL PO PRN (22:28)
[2019-07-11] MEDS: PROTONIX IV SCH (22:28)
[2019-07-12] MEDS: ZOSYN 3.375 GM in NS 50 ML IV SCH ×5 (04:16→21:27)
[2019-07-12] MEDS: NS 1,000 ML IV SCH (10:51)
--- NOTE | 2019-07-12 14:39 | Diag Imaging Result Doc PS360 ---
EXAM: KUB ABDOMEN 07/12/2019 HISTORY: constipation TECHNIQUE: KUB COMMENT: There is stool throughout the colon. The stomach and small bowel are not distended. There is no evidence organomegaly or mass. There are surgical clips in the right upper quadrant. IMPRESSION: Constipation. Electronically signed by Mike Bonilla 07/12/2019 2:37 PM
--- NOTE | 2019-07-12 15:48 | PROGRESS NOTE ---
DATE: 07/12/2019 SUBJECTIVE: Last night he had abdominal pain. He was given Tylenol and Maalox and this morning the pain is better. He still has a low-grade fever. OBJECTIVE: Vital Signs: Vitals are stable. HEENT: Sniffles. Neck: Supple. Small sebaceous cyst noted on the C7 on the back of the neck. Chest: Clear. Heart: Sounds are regular. Abdomen: Belly is soft, nontender. Good bowel sounds. Extremities: No peripheral edema. Neurological: No obvious deficits. ASSESSMENT AND PLAN: 1. Viral fever, leukopenia. Human immunodeficiency virus test is pending. Empirical antibiotics. 2. Glucose intolerance. C-peptide is normal on FreeStyle Hanna. 3. Abdominal pain. Belly exam is benign. Rule out constipation. Ordered KUB. 4. Questionable seizure. Waiting for EEG. We will consult with Dr. Hackett as well as Dr. Kohler in the morning and family wants a second opinion since he had these episodes almost three times. We will follow up. LEVEL OF DOCUMENTATION: 25 minutes. cc: Talon Mejia MD
[2019-07-12] MEDS: MIRALAX PO SCH (16:55)
[2019-07-12] MEDS: TYLENOL PO PRN (16:55)
--- NOTE | 2019-07-12 20:07 | INFECTIOUS DISEASE PROGRESS NO ---
DATE: 07/12/2019 PRESENT ILLNESS: The patient was admitted the hospital because he had seizures and his temperature did elevate to a maximum of 104. The exact cause of the fever and the seizures is uncertain to me. MEDICATIONS: The patient was on no medications at home. In here he has been started on Zosyn and azithromycin and he has not had any further fevers. The patient's laboratory studies show a CBC with a white count of 2160, hemoglobin 15.1 and platelet count 161,000. Creatinine is 1.2. GFR is greater than 60. The ALT is 102. CK is 574. Urinalysis is negative for white cells and bacteria. Drug screen is negative. Blood cultures are negative. Swab for influenza is negative. Chest x-ray shows no acute disease. CT scan of the head shows no abnormality except the ethmoid sinusitis and that is getting better. As mentioned above, the patient is on Zosyn and azithromycin. PHYSICAL EXAMINATION: Vital Signs: Temperature is 99.2 degrees, pulse 75, respirations 20, blood pressure 130/69. General: This is obese but otherwise healthy-appearing young male. He is in no acute distress. Head/eyes/ears/nose/throat: He can hear my spoken words and see near objects. He does not have any drainage from his nose or ears. He does not have any white patches. Mouth, his sinuses are not tender. Neck: No meningismus. Lungs: Clear to auscultation. Cardiovascular: Regular heart rate. I did not hear a murmur. Abdomen: Soft and nontender. Neurologic: The patient is alert. He is able to ambulate. There is no tremor. He talks in a coherent fashion. LAB AND X-RAY: CBC shows a white count 2160, hemoglobin 15.1 and platelet count 161,000. Creatinine is 1.2. GFR is greater than 60. ALT is 102. CK is 574. Urinalysis is negative for white cells and bacteria. Drug screen is negative. Blood cultures are negative. Swab for influenza is negative. Chest x-ray shows no acute disease. CT scan of the head shows improvement in the patient's ethmoid sinusitis and no other abnormality. ASSESSMENT AND PLAN: The patient has been having fever and seizures the etiology of which is uncertain to me. From Infectious Disease point, I do not find any definite evidence that the patient has an infection. COMORBIDITIES: None that I could find. cc: MD Talon Millard MD
[2019-07-12] MEDS: ZITHROMAX 500 MG/NS 500 MG/250 ML IVPB IV SCH (21:28)
[2019-07-12] MEDS: LOVENOX SUBQ SCH (21:28)
[2019-07-12] MEDS: SODIUM CHLORIDE 0.9% INJ SCH (21:28)
[2019-07-12] MEDS: PROTONIX IV SCH (21:28)
[2019-07-13] MEDS: ZOSYN 3.375 GM in NS 50 ML IV SCH ×4 (03:55→21:10)
[2019-07-13] MEDS: NS 1,000 ML IV SCH ×3 (04:27→18:23)
[2019-07-13] MEDS ORDERED: MIRALAX PO SCH (09:00)
[2019-07-13] MEDS: MIRALAX PO SCH (10:48)
--- NOTE | 2019-07-13 15:12 | Diag Imaging Result Doc PS360 ---
MRI BRAIN W/WO CONTRAST - 07/13/2019 INDICATION: seizures COMPARISON: Head CT 07/10/2019 FINDINGS: There is no area of restricted diffusion. The ventricles and sulci are normal in size and contour. No intracranial mass or hemorrhage. No area of abnormal contrast enhancement. Midline structures including the optic chiasm and pituitary are normal. There is moderate sinusitis. IMPRESSION: Moderate sinusitis of the paranasal sinuses. Otherwise negative exam. Electronically signed by Rajeev Solano 07/13/2019 3:10 PM
--- NOTE | 2019-07-13 16:27 | Diag Imaging Result Doc PS360 ---
CT THORAX/ABD/PELVIS W/WO CON - 07/13/2019 INDICATION: abdominal pain, fever COMPARISON: None FINDINGS: CHEST: The lungs are clear. Heart size is normal. No pneumothorax or pleural effusion. There is no adenopathy. Bony structures are intact. Abdomen pelvis: There are cholecystectomy clips. Otherwise all abdominal organs are normal. No bowel obstructive or inflammation. Normal appendix. No free air or free fluid. Urinary bladder, prostate, and rectum are normal. Bony structures are intact. IMPRESSION: Negative exam. This exam was performed using automated exposure control, adjustment of mA or kV according to patient size, and/or use of iterative reconstruction technique Electronically signed by Rajeev Solano 07/13/2019 4:25 PM
--- NOTE | 2019-07-13 19:41 | EEG REPORT ---
DATE: 07/10/2019 REFERRING: Dr. Mejia. ELECTRICAL APPLIANCE REPAIRER: Emily Leonardo. BACKGROUND INFORMATION: Technique: This is a digitally recorded routine EEG with video. History: 23-year-old male patient with 2 seizure-like episodes in the past, one in 2018, one last month. These may be associated with hypoglycemia. History of IBS. On 07/10/2019, he was at a pharmacy, began dropping his medications, coughing, and passed out with seizure-like activity lasting approximately 3 minutes. He had a fever. EEG is ordered to detect evidence of seizures. EEG FINDINGS: A moderately well-formed, 9.5 Hz posterior dominant alpha rhythm is seen symmetrically in the occipital regions and attenuates with eye opening. The anterior background at maximal alertness consists of mixed alpha and beta range frequencies. No definite persistent focal slowing. No epileptiform discharges. No seizures. Hyperventilation induces mild diffuse physiologic slowing. Photic stimulation does not alter the record significantly. The patient becomes drowsy, but stage N2 sleep is not seen. EKG demonstrates regular RR interval. IMPRESSION AND CLINICAL CORRELATION: Normal routine EEG in the awake and drowsy states. Of note, a normal EEG does not rule out epilepsy. Clinical correlation is recommended. cc: MD Talon Perez MD
--- NOTE | 2019-07-13 20:23 | INFECTIOUS DISEASE PROGRESS NO ---
DATE: 07/13/2019 PRESENT ILLNESS: Mr. Quinn has been admitted due to seizures and fever, the etiology of which is uncertain. MEDICATIONS: He has been receiving Zithromax 500 mg IV daily and Zosyn 3.375 g IV every 6 hours. PHYSICAL EXAM: Vital Signs: Temperature is 98 degrees, pulse rate 65, respiratory rate 19, blood pressure 137/62, O2 saturation is 99% on room air. General: This is a healthy- appearing young man, he is sitting up in bed currently in no acute distress. HEENT: Atraumatic, normocephalic. Oral mucous membranes are pink and moist. Conjunctivae are pink. No tenderness to his sinuses. Neck: Supple. Trachea is midline. Respiratory: Lung sounds are clear to auscultation bilaterally. No work of breathing is noted. Cardiovascular: Heart rate and rhythm are regular. S1, S2 noted. Abdomen: Soft, round and nontender. Bowel sounds are active. Neurologic: He is awake, alert, oriented and able to ambulate independently. LABORATORY AND X-RAY: None available today. ASSESSMENT AND PLAN: Mr. Quinn has been admitted twice for fever and seizures with unknown etiology. Looking back he has not had a CT but has complained of abdominal pain. We will go ahead and do a CT of the thorax, abdomen and pelvis looking for possible sites of infection. He is feeling well today and denies any current pain but does have fatigue and loss of appetite. HIV antibody screen I think was supposed to be ordered, however it has been scheduled for the 20 of July. I am going to go ahead and put in order to do that today along with the CT. He does have leukopenia. We will go ahead and recheck blood work in the morning. These plans have been discussed with and recommended by Dr. Hackett. COMORBIDITIES: Include asthmatic bronchitis, borderline diabetes and irritable bowel syndrome. Dictated by PALMIRA English for Sher Hackett MD cc: MD Talon Millard MD MTDD
--- NOTE | 2019-07-13 20:46 | NEUROLOGY CONSULTATION ---
DATE: 07/13/2019 REASON FOR CONSULT: Question of seizure. HISTORY OF PRESENT ILLNESS: This is a 23-year-old right-handed male who was admitted on 07/10/2019. History is from the mother and the patient. Apparently, in October of 2017 he had a single event where he was dry heaving in the bathroom. His mom heard him, came and checked on him and he shortly thereafter, fell onto the floor. His eyes rolled back, and he was less responsive with some drooling around the mouth. There was not shaking. There was not incontinence or tongue biting. EMS was called and he was evaluated in the emergency department and sent home with a diagnosis of vasovagal syncope with nausea and vomiting. Their notes indicate that he reported abdominal cramping with nausea, vomiting and diarrhea. Went to the restroom and became dizzy, vomited and passed out. He was difficult to arouse for a few seconds. The patient eventually was diagnosed with a gallbladder issue and had that removed and did well subsequently. In June of this year, he had 3 unusual events. The first 2 occurred, I believe 06/16/2019. He was driving and pulled over. A witness stated that he passed out. He reported body aches and cough at that time. Then while he was in the emergency department, there was documentation of the patient having a seizure-like event with clinched jaw and unresponsive to verbal stimuli lasting approximately 20 seconds. The mother did not see the event very well, but this is the documentation in the chart. He was not himself afterwards and seemed sleepy. After he recovered, he was discharged home. He had another event in late June while at work. The details are not really known. I believe his blood sugar was in the 60s. Lastly, he an event this time when he was at a pharmacy and apparently he grabbed his head, yelled out, and fell with apparent loss of consciousness. I am not certain there was any shaking. There was not tongue biting or incontinence. With all these events the patient reports memory gap. Mother reports at least on a couple of them he was confused and sleepy afterwards. With at least 1 event, his blood sugar was low. Other than this, he denies history of seizure or seizure-like event, stroke or major neurologic illness. He had normal and development. No history of SAFETY ATTENDANT infection. He had a concussion years ago playing football. Of note, the patient has been having recurrent at times high-grade fevers since June. They have fluctuated off and on and he has taken various rounds of antibiotics. He was febrile on arrival here, above 102 degrees again. Additionally, he has been leukopenic and that continues to drop. PAST MEDICAL HISTORY: Glucose intolerance, cholecystectomy. FAMILY HISTORY: No seizures, strokes, cancers or autoimmune diseases. 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 He lives in [place] with his mother. No smoking. No drugs. He rarely drinks an alcoholic beverage. He is single. He has a child. ALLERGIES: Listed to ScalIT which caused hives. MEDICATIONS CURRENT: Reviewed in the chart. REVIEW OF SYSTEMS: Balance of 12 conducted and otherwise negative except that detailed in the HPI. PHYSICAL EXAMINATION: Vital Signs: He was febrile at 102.9 on admission. It went as high as 103.5. Last temperature was 101.7 degrees yesterday midday. Afebrile since. Blood pressure 145/74 on admission. Current 137/62, pulse 60s to 70s. Respirations 19, 99% on room air. General: Mr. Quinn is sitting up in bed. He is awake, alert, fully oriented. Speech fluent. No language disturbance on brief bedside testing. He is attentive and spontaneous, appropriate and interactive. Follows simple and complex commands. Left, right digit distinction preserved. HEENT: Pupils equal, round, reactive to light. Gaze is conjugate. Ocular movements full. Visual godinez are intact to direct confrontational testing. Face symmetric with equal activation. Facial sensation reported intact. He can hear. Tongue is midline. Palate elevates symmetrically. Neurologic: Shoulder shrug is full. No adventitious movements observed at rest or with the arms outstretched no pronator drift. Tone equal in the limbs. Good power that is preserved and symmetric in the limbs. Fpefal-[id number] rapid alternating movements and kutm-nw-[id number] intact. Reports intact sensation to light touch in the limbs. Reflexes 2+ at the wrists and knees. Ankle jerks are 1+. No clonus. Plantar response downgoing. IMAGING: Head CT noncontrast: No acute findings. That was 07/10/2019. There was another head CT 10/28/2017 and 06/16/2019 both noncontrast showing no acute findings. Routine EEG was personally reviewed. Normal. LABS: White count has been low, current 2.16. Normal sodium, BUN. Creatinine 1.3 on admission, now 1.2. GFR greater than 60. Blood sugar 67 to 123. A1c of 6.0. Normal calcium. AST 47, ALT 102. CK was 574. Normal plasma lactate levels. Toxicology negative. ASSESSMENT AND PLAN: A 23-year-old male with recurrent syncope versus seizure most recently in the setting of fluctuating fevers of uncertain etiology. He is also leukopenic. Electroencephalogram and head CT this admission was normal. The etiology is uncertain at this time. Reports of memory gap for the events as well as post event sleepiness or confusion, is more suggestive of seizure. But then, there are other features that are more suggestive of a vasovagal event. I would like to order a MRI of the brain with and without contrast. Would continue seizure precautions. I agree with workup for his leukopenia and recurrent fevers. Thank you for the consultation. cc: MD Talon Perez MD MTDD
[2019-07-13] MEDS: PROTONIX IV SCH (21:10)
--- NOTE | 2019-07-13 22:08 | PROGRESS NOTE ---
DATE: 07/13/2019 SUBJECTIVE: The patient had this fever 101. He continues to have fever, near syncope, and passing out, has some abdominal pain. KUB showed constipation, and the family wants a second opinion with ID specialist and neurologist. OBJECTIVE: Vital signs: Temperature is 98 degrees. Vitals are stable. HEENT Exam: Some sniffles, congestion noted. Neck: Supple. Chest: Clear. Cardiovascular: Heart sounds are regular. Abdomen: Belly is soft, nontender. No signs of peritonitis. Neurologic: No neurological deficits. INVESTIGATIONS: White cell count is low. ASSESSMENT AND PLAN: 1. Multiple syncope spells, questionable seizures, vasovagal versus hypoglycemia. 2. Glucose intolerance. 3. Neurology consult with Dr. Kohler. Follow up on MRI, EEG. 4. Fever, abdominal pain. Dr. Hackett is looking up on. So far no source identified except coryza symptoms with sinusitis. Empirically on Zosyn and Zithromax. 5. Continue deep venous thrombosis and gastrointestinal prophylaxis and will follow up. LEVEL OF DOCUMENTATION: 25 minutes. cc: Talon Mejia MD
[2019-07-14] MEDS: ZOSYN 3.375 GM in NS 50 ML IV SCH ×2 (03:40→09:54)
[2019-07-14] MEDS: SODIUM CHLORIDE 0.9% INJ SCH (05:48)
[2019-07-14] MEDS: NS 1,000 ML IV SCH ×3 (05:49→14:49)
[2019-07-14] MEDS: ZITHROMAX 500 MG/NS 500 MG/250 ML IVPB IV SCH (06:58)
[2019-07-14 09:06] LABS: AGAP 12; ALB/GLOB RATIO 1.2; ALBUMIN 3.8 g/dL (3.5-5.0); ALKALINE PHOSPHATASE 50 U/L (32-122); BUN 14 mg/dL (8-22); CALCIUM 9.1 mg/dL (8.8-10.2); CHLORIDE 102 mmol/L (98-107); COSMO 280; CREATININE 1.3 mg/dL (0.7-1.2); ESTIMATED GFR > 60; GLUCOSE 105 mg/dL (70-104); GOT 21 U/L (10-34); GPT 47 U/L (10-44); POTASSIUM 4.6 mmol/L (3.5-5.1); SODIUM 140 mmol/L (136-145); TCO2 26 mmol/L (25-35)
[2019-07-14 09:07] LABS: BASO# 0.01 X1000 (0.0-0.2); BASO% 0.5 % (0.0-0.8); EOS% 5.1 % (0.0-10.0); HEMATOCRIT 47.4 % (42.0-52.0); HEMOGLOBIN 15.6 g/dL (14.0-18.0); LYMPH# 1.27 X1000 (1.2-3.4); LYMPH% 64.1 % (20.5-51.1); MCHC 32.9 g/dL (33-37); MONO# 0.27 X1000 (0.11-0.59); MONO% 13.6 % (1.7-9.3); MPV 10.3 FL (7.4-10.4); NEUT# 0.33 X1000 (1.4-6.5); NEUT% 16.7 % (42.2-75.2); PLT 173 X1000 (130-400); RDW 12.4 % (11.5-14.5); WBC 1.98 X1000 (4.8-10.8)
[2019-07-14] MEDS: MIRALAX PO SCH (09:54)
[2019-07-14 10:02] LABS: BANDS 8 % (0-1); EOS 4 % (1-10); LYMPHS 56 % (21-51); MONO 8 % (1-9); SEGS 24 % (42-75)
[2019-07-14 11:48] LABS: HIV ANTIBODY SCREEN SEE COMMENTS
[2019-07-14] MEDS ORDERED: NEUPOGEN SUBQ ONE (16:57)
--- NOTE | 2019-07-14 17:25 | HEMO/ONC CONSULTATION ---
DATE: 07/14/2019 REASON FOR CONSULTATION: Leukopenia and neutropenia. HISTORY OF PRESENT ILLNESS: The this is a 23-year-old male who has come to the ER with his 2nd episode of possibly a syncopal episode versus a seizure associated with blood sugars dropping. This occurred on 07/10/2019. He is a regular patient of Dr. Mejia. He is admitted in June for similar syncopal spells and recurrent fevers. He was seen by Dr. Hackett and recently treated for upper respiratory infections. During this time he had a syncopal with blood low blood sugar and was admitted in the hospital. A 3 hour glucose tolerance test revealed the patient does have borderline diabetes. His A1c was normal. While out in public on the , he started coughing, passed out and had a possible seizure like activity for about 3 minutes. He was brought to the ER from there. In the ER his workup was negative. His CT showed improvement in his recent ethmoid sinusitis. Flu test was negative. A low white count was noted. He was admitted to the hospital for further workup of seizure, syncope, recurrent fever and leukopenia. Since being in the hospital, the family has requested a neurology consult and a specialist with Infectious Disease. The patient's brain MRI showed moderate sinusitis, otherwise negative. The patient's blood cultures have shown no growth. Neurology is working up differentials of vasovagal event versus seizures. Etiology remains unclear. PAST MEDICAL HISTORY: Allergic rhinitis, asthmatic bronchitis, glucose intolerance, IBS with constipation. PAST SURGICAL HISTORY: None. MEDICINES: Home medications: Z-Cheikh and Norel AD. ALLERGIES: Zofran. SOCIAL HISTORY: Denies smoking, drugs, or alcohol. REVIEW OF SYSTEMS: Headache, fever, sore throat. All other review of systems negative.Vital Signs: Temperature 97.9 degrees, pulse rate 64, respiratory rate 20, blood pressure 125/59, O2 saturation 99% on room air. He is in 0/10 pain. PHYSICAL EXAMINATION: General: The patient is in no acute distress. HEENT: Sclerae are anicteric. Sinus congestion noted. PERRLA. Oral mucosa is normal. Cardiovascular: Normal S1, S2. Heart rate and rhythm regular. Respiratory: Lung sounds are clear to auscultation. Normal respiratory effort. Abdomen: Soft, nontender, nondistended. Neurological: Alert and oriented x3. No focal motor deficits. Extremities: No lower extremity edema noted. LABORATORY: WBCs 1.98, hemoglobin 15.6, hematocrit 47.4, platelet count 173,000. ANC 0.33 creatinine 1.3. LDH 171, vitamin B12 506, folate 11.2. ESR 12. HIV nonreactive. RADIOLOGY: CT of chest, abdomen and pelvis is negative exam. Brain MRI shows moderate sinusitis of the paranasal sinuses. Abdominal x-ray: Stool throughout the colon, constipation. Chest x- ray negative exam. Head CT shows no evidence of acute intracranial disease. ASSESSMENT AND PLAN: 1. Leukopenia and neutropenia. The patient is currently on antibiotics. We are continuing to evaluate labs. We will continue to evaluate and plan further management according to patient's progression. 2. Deep venous thrombosis prophylaxis. Allow the patient to get up and move about the room. Keep SCDs or pneumatic devices on while patient is resting. 3. Constipation. Keep the patient on MiraLAX. Keep the patient hydrated. Dictated by PALMIRA Stubbs for Alton Salcido MD As above. Febrile illness. Now with neutropenia. Give neupogen. Get labs. Will follow with you. Thanks. Alton Salcido MD cc: MD Talon Saunders MD MTDD
[2019-07-14] MEDS ORDERED: GRANIX SUBQ ONE (18:00)
[2019-07-14] MEDS: PROTONIX IV SCH (20:43)
--- NOTE | 2019-07-14 20:59 | INFECTIOUS DISEASE PROGRESS NO ---
DATE: 07/14/2019 PRESENT ILLNESS: Mr. Quinn has had fever and seizures versus syncopal episodes. There is a moderate sinusitis as noted on his brain MRI. MEDICATIONS: He has been receiving Zithromax 500 mg IV daily and Zosyn 3.375 g IV every 6 hours. It looks as though the Zosyn has been recently stopped. PHYSICAL EXAMINATION: Vital Signs: Temperature is 97.8 degrees, pulse rate 65, respiratory rate 20, blood pressure 117/61. O2 saturation is 98% on room air. General: This is a healthy- appearing young man, who is sitting up in bed, currently in no acute distress. HEENT: Atraumatic, normocephalic. Oral mucous membranes are pink and moist. Conjunctivae are pink. I palpated his sinuses and they are not tender. Neck: Supple. Trachea is midline. Respiratory: Bilateral lung sounds are clear to auscultation. No work of breathing is noted. Cardiovascular: S1, S2 noted. Heart rate is regular. Abdomen: Soft, round and nontender. Bowel sounds are active. Neurologic: He is awake, alert, oriented, and able to ambulate independently. Integumentary: Skin is warm, dry, and intact. LABORATORY AND X-RAY: Today his white count is 1.98, hemoglobin 15.6, platelet count 173,000. Absolute neutrophil count is 330. Creatinine is 1.3 with an estimated GFR of greater than 60. Total bilirubin is 0.60. AST 21, ALT of 47, alkaline phosphatase 50. His HIV antibody test was nonreactive. No imaging reports today. However, yesterday the CT of his chest, abdomen and pelvis was negative, and the MRI of his brain showed moderate sinusitis of the paranasal sinuses. ASSESSMENT AND PLAN: Mr. Quinn came into the hospital for fever and seizure versus syncopal episode. He has been found to have moderate sinusitis which has improved on his empiric antibiotics. His HIV antibodies were negative. At this point, we do not find any other infectious etiology that would explain seizures, syncope or fever. We would suggest that he be sent home with Augmentin for 10 days. At this point, we will sign off the case but be available on as-needed basis. These plans have been discussed with and recommended by Dr. Hackett. COMORBIDITIES: For Mr. Quinn include asthmatic bronchitis, borderline diabetes, and irritable bowel syndrome. Dictated by PALMIRA English for Sher Hackett MD cc: MD Talon Millard MD MTDD
--- NOTE | 2019-07-14 21:43 | NEUROLOGY PROGRESS NOTE ---
DATE: 07/14/2019 SUBJECTIVE: No major overnight events. The patient says he feels well today. OBJECTIVE: He is currently afebrile. Blood pressure 117/61, pulse 65, respirations 20, 98% on room air. Mr. Quinn is supine in bed, looking at his cellphone. He is awake, alert, fully oriented, appropriate and attentive. He follows commands. His pupils are equal. Gaze is conjugate. Face symmetric with equal activation. No dysarthria or language disturbance. He has spontaneous movement of the limbs without obvious focal deficit. LABORATORY DATA: The patient's white count has been trending down since June 16. Today it is 1.98. His absolute neutrophil count today has dropped to 0.33, and when looking back it has also been gradually declining over the years. The patient's creatinine is 1.3. His AST was 47 now 21; ALT 102, now 427. CK was 574 on admission. HIV antibody screen is negative. DIAGNOSTIC DATA: Routine EEG was personally reviewed, and is normal in the awake and drowsy states. Medication-villafuerte he is on azithromycin and had been on Zosyn, which was discontinued now. MRI of the brain with and without contrast showed moderate sinusitis, otherwise negative exam. This was personally reviewed as well. ASSESSMENT AND PLAN: Syncope versus seizure in the setting of recurrent fever of uncertain etiology. His white count and absolute neutrophil count have been declining. Clinically he looks well. I am not certain if this is a medication effect or if something else is going on, and would defer to the primary in this regard. With regards to the events that he has had, EEG and MRI were normal which is reassuring. There are some features that would suggest seizure and yet others that would suggest a vasovagal event. I think we will consider setting up either a sleep-deprived EEG or a 24 to 48-hour ambulatory EEG as an outpatient, to try and increase our sensitivity. If he continues to have the events, we may consider empiric treatment trial with an antiepileptic medication. cc: MD Talon Perez MD
--- NOTE | 2019-07-14 22:17 | PROGRESS NOTE ---
DATE: 07/14/2019 SUBJECTIVE: Patient continues to be depressed and mother is anxious about the sons syncope spells. I appreciated all the consultants which includes Dr. Hackett and Dr. Gupta. All the workup was negative except sinusitis. Apparently, he is a little bit depressed. OBJECTIVE: Vital signs: Afebrile. Vitals are stable. HEENT: Exam within normal limits. Neck: Is supple. No lymphadenopathy. Chest: Is bilateral air entry. Heart: Sounds are regular. Abdomen: Belly is soft, nontender. Neurologic: No obvious deficits. INVESTIGATIONS: White cell count 1.98, hematocrit 47, platelets 173,000. ANC 600 creatinine 1.3. HIV was negative. ASSESSMENT AND PLAN: 1. Leukopenia. ANC is about 600. Looks like a viral. We will check the CMV, EBV and consult Dr. Salcido. 2. Discontinue IV Zosyn. 3. Oral hydration. 4. Glucose intolerance. Continue freestyle Hanna monitoring. 5. I explained to the patient and the mother so far nothing panned out. It may be look like a viral fever complicated by vasovagal attack, versus hypoglycemia causing the seizures, no structural abnormalities noted and I spoke to Dr. Salcido to monitoring the CBC and will follow up on the labs. LEVEL OF DOCUMENTATION: 25 minutes. cc: Talon Mejia MD [facility]
[2019-07-15] MEDS: SODIUM CHLORIDE 0.9% INJ SCH ×2 (04:37→23:51)
[2019-07-15] MEDS: PROTONIX IV SCH ×2 (04:37→23:51)
[2019-07-15] MEDS: NS 1,000 ML IV SCH ×2 (04:38→14:53)
[2019-07-15] MEDS: ZITHROMAX 500 MG/NS 500 MG/250 ML IVPB IV SCH (04:38)
[2019-07-15] MEDS: MIRALAX PO SCH (09:50)
[2019-07-15 10:09] LABS: BASO# 0.04 X1000 (0.0-0.2); BASO% 0.3 % (0.0-0.8); EOS# 0.05 X1000 (0.0-0.7); EOS% 0.4 % (0.0-10.0); HEMATOCRIT 47.5 % (42.0-52.0); HEMOGLOBIN 15.9 g/dL (14.0-18.0); IMM GRAN# 0.27 X1000 (0.0-0.04); IMM GRAN% 2.3 % (0.0-0.5); LYMPH% 14.7 % (20.5-51.1); MCH 26.3 PG (27-31); MCHC 33.5 g/dL (33-37); MCV 78.6 FL (81-99); MONO# 1.06 X1000 (0.11-0.59); MONO% 9.2 % (1.7-9.3); MPV 9.7 FL (7.4-10.4); NEUT# 8.44 X1000 (1.4-6.5); NEUT% 73.1 % (42.2-75.2); PLT 158 X1000 (130-400); RBC 6.04 XMIL (4.7-6.1); RDW 12.3 % (11.5-14.5); WBC 11.56 X1000 (4.8-10.8)
[2019-07-15 14:05] LABS: HEPATITIS PROFILE ACUTE SEE COMMENTS
--- NOTE | 2019-07-15 14:55 | NEUROLOGY PROGRESS NOTE ---
DATE: 07/15/2019 Mr. Quinn had an episode of syncope versus seizure. Dr. Gupta saw him for initial neurology evaluation this admission. He has had stable course from a neurologic standpoint. He has not had any further episodes. EEG on 07/10/[address] of the head 07/10/2019 and brain MRI 07/13/2019 with and without contrast were unremarkable. Temperature was 102.9 degrees and 103.5 first day of admission. He has been afebrile for the last several days. Leukopenia and neutropenia are prominent. Today, Mr. Quinn reports no knowledge of events leading to hospitalization and he declined further conversation. Family at the bedside did not witness the episode and I do not have a first hand report. I do not have any new thoughts or new suggestions to add to what Dr. Gupta has outlined. If he has another episode typical of seizure, we might start medicine for seizure control. Later, depending on his clinical course, we might consider prolonged EEG as an outpatient. Thanks for asking neurology to see Mr. Quinn. cc: MD Talon Lees III, MD MTDD
--- NOTE | 2019-07-15 16:37 | HEMO/ONC PROGRESS NOTE ---
DATE: 07/15/2019 SUBJECTIVE: Patient is somewhat depressed this morning. He and his family are anxious about why he is having syncopal spells. The patient has been afebrile for several days now. Health villafuerte, he is feeling better. His sinusitis is improving. No significant events have occurred. OBJECTIVE: Vital Signs: Temperature 97.8 degrees, pulse rate 64, respiratory rate 18, blood pressure 118/66, and O2 saturation 98% on room air. He is in 0/10 pain. General: Patient is in no acute distress. Cardiovascular: Normal S1, S2. Heart rate and rhythm is regular. Respiratory: Lung sounds are clear to auscultation. Normal respiratory effort. Abdomen: Belly is soft, nontender, and nondistended. Neurological: Alert and oriented x3. No focal motor deficits. Extremities: No lower extremity edema. Lymphatic: No notable lymphadenopathy. LABORATORY: WBCs 11.56, hemoglobin 15.9, hematocrit 47.5, and platelet count 158,000. ANC 8.44. CASA screen negative. CMV screen negative. Hepatitis panel negative. HIV screen negative. LDH 171. ASSESSMENT AND PLAN: 1. Leukopenia and neutropenia. This was resolved with 1 dose of Neupogen. It appears to be most likely viral in nature. We will continue to monitor and evaluate as patient's progression reveals. 2. DVT prophylaxis. Continue to allow the patient to get up and down. Keep him with pneumatic devices or SCD's while in bed. 3. Constipation. Continue MiraLAX. 4. Syncope aware. EEG, CT, and MRI were all unremarkable. The patient will continue to follow with Neurology. Dictated by PALMIRA Stubbs for Alton Salcido MD cc: MD Talon Saunders MD [facility]US[facility]uart
--- NOTE | 2019-07-15 21:56 | PROGRESS NOTE ---
DATE: 07/15/2019 SUBJECTIVE: The patient is depressed. Mother is at bedside. I appreciate Dr. Salcido's consult. The patient was given Granix 48 mcg subcu and is afebrile. OBJECTIVE: Vitals are stable. Physical exam no change. ASSESSMENT AND PLAN: 1. Leukopenia, most likely viral. CMV was negative. EBV is pending. Sinusitis is better. Continue on Zithromax. 2. Seizures. 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 3. Glucose intolerance. Continue sugar monitoring. CBC is getting better and if he is stable in the next 24 hours, will discharge in the morning. Level of documentation is 25 minutes. cc: Talon Mejia MD
[2019-07-16] MEDS: ZITHROMAX 500 MG/NS 500 MG/250 ML IVPB IV SCH (04:40)
[2019-07-16 07:42] VITALS: BP 118/68
== END 2019-07-16 10:41 | disposition home or self-care (01) | DRG 866 ==
LOC: SUPCPDRO → ED 14:19 → INTOOBSV 20:52 → EDIPHOLD 20:52 → OBSVTOIN 20:52 → 3N 07-11 01:56
PROVIDERS: ADMIT Internal Medicine; ATTEND Internal Medicine